=== PATIENT | female | born 1990 | race Two or more races ===

== ENCOUNTER 2018-06-25 04:21 | Emergency (ER) | payer OTHER ==
[~2018-06-25] VITALS: Ht 152.4 cm; Wt 74.8 kg
[~2018-06-25 04:21] MED LIST: DICLEGIS DR 101 EACH PO; MACROBID 100 M100 MG PO; NAPR500T14 PO; PEPCID20 MG PO; PRENATE ADVANCE PO; ZOFRAN4 MG SL
== END 2018-06-25 22:27 | disposition home or self-care (01) ==
LOC: ER 04:21
DX: K52.89 Other specified noninfective gastroenteritis and colitis (principal)

== ENCOUNTER 2018-09-09 08:50 | Emergency (ER) | payer OTHER ==
[~2018-09-09] VITALS: Ht 152.4 cm; Wt 73.9 kg
== END 2018-09-09 13:09 | disposition home or self-care (01) ==
LOC: ER 08:50
DX: R10.2 Pelvic and perineal pain (principal)

== ENCOUNTER → 2018-11-28 | Emergency (ER) | payer OTHER ==
[~2018-11-28] VITALS: Ht 154.9 cm; Wt 72.6 kg
== END | disposition home or self-care (01) ==
LOC: ER 03:45
DX: K52.9 Noninfective gastroenteritis and colitis, unspecified (principal)

== ENCOUNTER 2023-01-15 14:41 | Outpatient (CLI) | payer OTHER | END 2023-01-15 16:03 | disposition home or self-care (01) | LOC: PRENATAL 14:41 | PROVIDERS: ATTEND Obstetrics & Gynecology Maternal & Fetal Medicine | DX: O35.9XX0 Maternal care for (suspected) fetal abnormality and damage, unspecified, not applicable or unspecified (principal); O35.3XX0 Maternal care for (suspected) damage to fetus from viral disease in mother, not applicable or unspecified; Z3A.20 20 weeks gestation of pregnancy ==

== ENCOUNTER 2023-04-13 21:33 | Outpatient (CLI) | payer OTHER ==
[2023-04-13] MEDS ORDERED: IRON325 MG PO (21:47)
[2023-04-13] MEDS ORDERED: PRENATAL TABLE1 EAC1 PO (21:47)
[2023-04-13 22:19] LABS: MEAN CELL VOLUME 74.1 fL (80.00-100.00); MEAN CORPUSCULAR HGB CONC 31.4 g/dl (32.0-36.0); PLATELET COUNT 260 K/uL (150-450); RED BLOOD COUNT 4.05 M/uL (4.00-6.00)
[2023-04-13 22:23] LABS: HEMOGLOBIN 9.4 g/dL (12.0-15.00); MEAN CORPUSCULAR HEMOGLOBIN 23.2 pg (27.00-32.0); RED CELL DISTRIBUTION WIDTH 19.1 % (11.5-14.5)
[2023-04-13 22:37] LABS: PARTIAL THROMBOPLASTIN TIME 22.6 SECONDS (22.0-34.0)
[2023-04-13 22:43] LABS: ALBUMIN 2.5 gm/dL (3.4-5.0); BILIRUBIN TOTAL 0.83 mg/dL (0.3-1.2); CALCIUM 8.4 mg/dL (8.5-10.1); CREATININE SERUM 0.5 mg/dL (0.55-1.02); GFR 142.98; GLOBULINA 3.7 G/DL (2.4-3.5); POTASSIUM 3.96 mEq/L (3.5-5.1); TOTAL PROTEIN 6.2 gm/dL (6.4-8.2)
== END 2023-04-14 17:00 | disposition home or self-care (01) ==
LOC: OBS/DEL 21:33
PROVIDERS: ATTEND Obstetrics & Gynecology
DX: O26.893 Other specified pregnancy related conditions, third trimester (principal); R10.2 Pelvic and perineal pain; Z3A.33 33 weeks gestation of pregnancy

== ENCOUNTER 2023-04-27 14:09 | Inpatient (IN) | payer OTHER ==
[~2023-04-27] VITALS: Ht 154.9 cm; Wt 92.1 kg
[~2023-04-27 14:09] MED LIST changes: +IRON325 MG PO; +PRENATAL TABLE1 EAC1 PO
[2023-04-27 15:40] LABS: PH,URINE 6.5 (5.0-8.0); URINE APPEARANCE Cloudy; URINE BILIRRUBIN Negative (NEGATIVE); URINE BLOOD Negative; URINE COLOR Dark Yellow; URINE GLUCOSE Negative (NEGATIVE); URINE LEUKOCYTE Negative; URINE NITRATE Negative; URINE PROTEIN 30 (NEGATIVE)
[2023-04-27 15:41] LABS: URINE BACTERIA 2478.1 uL (0.0-1933); URINE EPITHELIAL CELLS 137.1 uL (0.0-38.8); URINE RBC 5.4 uL (0.0-20.8); URINE WBC 12.8 uL (0.0-23.2)
[2023-04-27 15:47] LABS: HEMATOCRIT 27.8 % (36.0-45.00); HEMOGLOBIN 9.2 g/dL (12.0-15.00); MEAN CORPUSCULAR HEMOGLOBIN 23.7 pg (27.00-32.0); MEAN CORPUSCULAR HGB CONC 32.9 g/dl (32.0-36.0); PLATELET COUNT 220 K/uL (150-450); RED BLOOD COUNT 3.87 M/uL (4.00-6.00); RED CELL DISTRIBUTION WIDTH 19.4 % (11.5-14.5)
[2023-04-27 16:07] LABS: ALBUMIN 2.4 gm/dL (3.4-5.0); BILIRUBIN TOTAL 1.05 mg/dL (0.3-1.2); CALCIUM 8.4 mg/dL (8.5-10.1); CREATININE SERUM 0.46 mg/dL (0.55-1.02); GFR 157.42; GLOBULINA 3.5 G/DL (2.4-3.5); POTASSIUM 3.84 mEq/L (3.5-5.1); TOTAL PROTEIN 5.9 gm/dL (6.4-8.2)
[2023-04-27 16:13] LABS: D DIMER 3.61 MG/L; INR 0.98; PARTIAL THROMBOPLASTIN TIME 25.2 SECONDS (22.0-34.0); PROTHROMBIN TIME 10.3 SECONDS (9.0-11.5)
== END 2023-04-28 17:13 | disposition home or self-care (01) | DRG 833 ==
LOC: LDR 14:09
PROVIDERS: ADMIT Obstetrics & Gynecology; ATTEND Obstetrics & Gynecology
PROC: 4A1HXCZ Monitoring of Products of Conception, Cardiac Rate, External Approach (ICD-10-PCS; principal; 2023-04-27)
PROC: BY4FZZZ Ultrasonography of Third Trimester, Single Fetus (ICD-10-PCS; 2023-04-27)
DX: O26.893 Other specified pregnancy related conditions, third trimester (principal); J11.1 Influenza due to unidentified influenza virus with other respiratory manifestations; O36.8130 Decreased fetal movements, third trimester, not applicable or unspecified; Z3A.35 35 weeks gestation of pregnancy; Z20.822 Contact with and (suspected) exposure to COVID-19

== ENCOUNTER 2023-05-18 12:24 | Inpatient (IN) | payer OTHER ==
[~2023-05-18] VITALS: Ht 154.9 cm; Wt 3.6 kg
[2023-05-18 13:55] LABS: HEMATOCRIT 31.8 % (36.0-45.00); HEMOGLOBIN 10.2 g/dL (12.0-15.00); MEAN CELL VOLUME 77.4 fL (80.00-100.00); MEAN CORPUSCULAR HEMOGLOBIN 24.9 pg (27.00-32.0); MEAN CORPUSCULAR HGB CONC 32.2 g/dl (32.0-36.0); PLATELET COUNT 252 K/uL (150-450); RED BLOOD COUNT 4.11 M/uL (4.00-6.00)
[2023-05-18 14:24] LABS: INR < 0.93; PARTIAL THROMBOPLASTIN TIME 24.7 SECONDS (22.0-34.0); PROTHROMBIN TIME 9.8 SECONDS (9.0-11.5)
[2023-05-18 14:46] LABS: ALBUMIN 2.7 gm/dL (3.4-5.0); BILIRUBIN TOTAL 0.63 mg/dL (0.3-1.2); CALCIUM 8.6 mg/dL (8.5-10.1); CREATININE SERUM 0.5 mg/dL (0.55-1.02); GFR 142.98; GLOBULINA 3.5 G/DL (2.4-3.5); POTASSIUM 3.66 mEq/L (3.5-5.1); TOTAL PROTEIN 6.2 gm/dL (6.4-8.2)
[2023-05-27 13:09] LABS: HEMATOCRIT 35.1 % (36.0-45.00); HEMOGLOBIN 11.3 g/dL (12.0-15.00); MEAN CELL VOLUME 79.2 fL (80.00-100.00); MEAN CORPUSCULAR HEMOGLOBIN 25.4 pg (27.00-32.0); MEAN CORPUSCULAR HGB CONC 32.1 g/dl (32.0-36.0); PLATELET COUNT 260 K/uL (150-450); RED BLOOD COUNT 4.43 M/uL (4.00-6.00)
[2023-05-27 13:10] LABS: RED CELL DISTRIBUTION WIDTH 28.5 % (11.5-14.5)
== END 2023-05-29 13:58 | disposition home or self-care (01) | DRG 785 ==
LOC: OB/GYN 05-26 07:00 → O/R 05-26 09:46 → OB/GYN 05-26 12:06
PROVIDERS: ADMIT Obstetrics & Gynecology; ATTEND Obstetrics & Gynecology
PROC: 0UB70ZZ Excision of Bilateral Fallopian Tubes, Open Approach (ICD-10-PCS; 2023-05-26)
PROC: 4A1HXCZ Monitoring of Products of Conception, Cardiac Rate, External Approach (ICD-10-PCS; 2023-05-26)
PROC: 10D00Z1 Extraction of Products of Conception, Low, Open Approach (ICD-10-PCS; principal; 2023-05-26 07:00)
DX: O34.211 Maternal care for low transverse scar from previous cesarean delivery (principal); Z30.2 Encounter for sterilization; Z3A.39 39 weeks gestation of pregnancy; Z37.0 Single live birth; Z20.822 Contact with and (suspected) exposure to COVID-19

== ENCOUNTER 2024-09-11 11:29 | Emergency (ER) | payer OTHER ==
[~2024-09-11] VITALS: Ht 160 cm; Wt 78.5 kg
[2024-09-11] MEDS ORDERED: METHYLPREDNISOLONE SOD SUCC 40 MG VIAL IM SCH (14:08)
[2024-09-11] MEDS ORDERED: CEFTRIAXONE SODIUM 1,000 MG VIAL IM STA (14:10)
[2024-09-11] MEDS ORDERED: IPRATROPIUM/ALBUTEROL SULFATE 3 ML AMPUL.NEB IH SCH (14:15)
[2024-09-11] MEDS ORDERED: METHYLPREDNISOLONE SOD SUCC 40 MG VIAL ONE (14:29)
[2024-09-11] MEDS ORDERED: CEFTRIAXONE SODIUM 1,000 MG VIAL ONE (14:30)
[2024-09-11] MEDS ORDERED: ONDANSETRON HCL 2 MG/ML VIAL ONE (14:55)
[2024-09-11] MEDS ORDERED: FAMOTIDINE/PF 20 MG/2 ML VIAL ONE (14:55)
[2024-09-11 15:00] LABS: HEMATOCRIT 41.4 % (36.0-45.00); HEMOGLOBIN 14.2 g/dL (12.0-15.00); MEAN CELL VOLUME 83.2 fL (80.00-100.00); MEAN CORPUSCULAR HEMOGLOBIN 28.5 pg (27.00-32.0); MEAN CORPUSCULAR HGB CONC 34.3 g/dl (32.0-36.0); PLATELET COUNT 323 K/uL (150-450); RED BLOOD COUNT 4.98 M/uL (4.00-6.00); RED CELL DISTRIBUTION WIDTH 14.6 % (11.5-14.5)
[2024-09-11] MEDS ORDERED: ONDANSETRON HCL 2 MG/ML VIAL IV ONE (15:00)
[2024-09-11] MEDS ORDERED: FAMOtidine 10 MG/ML (4ML VIAL) IV ONE (15:00)
== END 2024-09-11 17:13 | disposition home or self-care (01) ==
LOC: ER 11:32
DX: K29.70 Gastritis, unspecified, without bleeding (principal); Z20.822 Contact with and (suspected) exposure to COVID-19